=== PATIENT | male | born 1995 | race Caucasian/White ===

== ENCOUNTER 2019-05-20 22:29 | Emergency (ER) | payer OTHER ==
[~2019-05-20] VITALS: Ht 188 cm; Wt 99.8 kg
[2019-05-20 22:30] VITALS: BP_SYST 154
[2019-05-20] MEDS ORDERED: NACL 0.9% 1,000 ML IV ONE (23:05)
[2019-05-20] MEDS ORDERED: MORPHINE 2 MG/ML INJ. SYRINGE IM ONE (23:15)
[2019-05-20] MEDS ORDERED: ONDANSETRON HCL 4 MG/2 ML VIAL IVP ONE (23:15)
[2019-05-21 00:46] LABS: EOSINOPHILS # (AUTO) 0.3 K/uL (0.0-0.4); LYMPHOCYTES # (AUTO) 5.2 K/uL (1.0-5.5); MONOCYTES # (AUTO) 1.1 K/uL (0.0-1.0); MONOCYTES % (AUTO) 8.8 % (1.7-9.3); WHITE BLOOD COUNT (AUTO) 12.7 K/uL (4.8-10.8)
[2019-05-21 00:51] LABS: BASOPHILS % (AUTO) 0.3 % (0.0-2.0); EOSINOPHILS % (AUTO) 2.2 % (0.0-4.0); HEMATOCRIT 43.2 % (36-54); HEMOGLOBIN 15.4 g/dL (14.0-18.0); LYMPHOCYTES % (AUTO) 41.3 % (20.5-51.5); MEAN CORPUSCULAR HEMOGLOBIN 31 pg (27-31); MEAN CORPUSCULAR HGB CONC 36 % (32-36); MEAN CORPUSCULAR VOLUME 88 fL (79.0-98.0); NEUTROPHILS % (AUTO) 47.4 % (40.0-70.0); PLATELET COUNT (AUTO) 363 K/uL (130-430); RED BLOOD CELL COUNT(AUTO) 4.89 MIL/uL (4.2-6.2); RED CELL DISTRIBUTION WIDTH 12.3 % (9.0-15.0)
[2019-05-21 00:56] LABS: CALCIUM 9.4 mg/dL (8.4-11.0); CREATININE 0.87 mg/dL (0.55-1.30); POTASSIUM 3.2 mmol/L (3.5-5.1)
[2019-05-21 01:00] LABS: BILIRUBIN,URINE NEGATIVE (NEGATIVE); BLOOD, URINE NEGATIVE (NEGATIVE); CLARITY/URINE SL HAZY (CLEAR); COLOR,URINE YELLOW (YELLOW); GLUCOSE,URINE NEGATIVE (NEGATIVE); KETONES,URINE TRACE (NEGATIVE); LEUKOCYTE ESTERASE ,URINE NEGATIVE (NEGATIVE); NITRITE, URINE NEGATIVE (NEGATIVE); PH,URINE 5.5 (5.0-8.0); PROTEIN URINE TRACE (NEGATIVE); UROBILINOGEN,URINE 0.2 (0.2-1.0)
[2019-05-21 01:01] LABS: PROTHROMBIN TIME 10.1 SECS (9.5-12.5)
[2019-05-21 01:02] LABS: ALBUMIN 4.3 g/dL (3.4-4.8); TOTAL BILIRUBIN 0.6 mg/dL (0.0-1.0)
[2019-05-21 02:30] VITALS: BP_SYST 128
== END 2019-05-21 02:30 | disposition home or self-care (01) ==
LOC: SED 22:29
DX: R10.31 Right lower quadrant pain (principal); Z88.5 Allergy status to narcotic agent; Z88.6 Allergy status to analgesic agent
CPT/HCPCS: 36415; 74176; 80053; 81003; 83690; 85025; 85610; 85730; 96374; 96375; 99284; J2270; J2405; J7030

== ENCOUNTER 2020-03-20 03:36 | Emergency (ER) | payer OTHER ==
[~2020-03-20] VITALS: Ht 185.4 cm; Wt 81.6 kg
[2020-03-20 04:10] VITALS: BP_SYST 128
[2020-03-20] MEDS ORDERED: MORPHINE 4 MG/ML INJ. SYRINGE IM ONE (05:00)
[2020-03-20 05:26] VITALS: BP_SYST 128
== END 2020-03-20 05:26 | disposition home or self-care (01) ==
LOC: SED 03:36
DX: M54.5 Low back pain (principal); Z88.5 Allergy status to narcotic agent; Z88.6 Allergy status to analgesic agent
CPT/HCPCS: 96372; 99283; J2270

== ENCOUNTER 2020-09-19 20:58 | Emergency (ER) | payer OTHER ==
[~2020-09-19] VITALS: Ht 177.8 cm; Wt 81.6 kg
[2020-09-19 21:10] VITALS: BP_SYST 136
[2020-09-19] MEDS ORDERED: HYDROcodone/ACETAMIN 7.5-325 MG TAB PO ONE (21:45)
[2020-09-19] MEDS ORDERED: KETOROLAC TROMETHAMINE 60 MG/2 ML VIAL IM ONE (21:45)
[2020-09-19 22:32] LABS: BASOPHILS % (AUTO) 0.3 % (0.0-2.0); EOSINOPHILS % (AUTO) 0.4 % (0.0-4.0); HEMATOCRIT 40.3 % (36-54); HEMOGLOBIN 14.2 g/dL (14.0-18.0); LYMPHOCYTES # (AUTO) 3.2 K/uL (1.0-5.5); LYMPHOCYTES % (AUTO) 28.6 % (20.5-51.5); MEAN CORPUSCULAR HEMOGLOBIN 30 pg (27-31); MEAN CORPUSCULAR HGB CONC 35 % (32-36); MEAN CORPUSCULAR VOLUME 84 fL (79.0-98.0); MONOCYTES # (AUTO) 0.7 K/uL (0.0-1.0); MONOCYTES % (AUTO) 6.2 % (1.7-9.3); NEUTROPHILS # (AUTO) 7.3 K/uL (1.8-7.7); NEUTROPHILS % (AUTO) 64.5 % (40.0-70.0); PLATELET COUNT (AUTO) 297 K/uL (130-430); RED BLOOD CELL COUNT(AUTO) 4.79 MIL/uL (4.2-6.2); RED CELL DISTRIBUTION WIDTH 11.8 % (9.0-15.0); WHITE BLOOD COUNT (AUTO) 11.3 K/uL (4.8-10.8)
[2020-09-19 22:42] LABS: ANION GAP 12 (5-15); CALCIUM 9.2 mg/dL (8.4-11.0); CHLORIDE 105 mmol/L (98-107); CREATININE 0.81 mg/dL (0.55-1.30); GLUCOSE 91 mg/dL (70-99); POTASSIUM 3.5 mmol/L (3.5-5.1); SODIUM SERUM 140 mmol/L (136-145); UREA NITROGEN, BLOOD 8 mg/dL (8-21)
[2020-09-19 22:46] LABS: PROTHROMBIN TIME 10.7 SECS (9.5-12.5)
[2020-09-19 22:47] LABS: ALANINE AMINOTRANSFERASE 54 U/L (12-78); ALBUMIN 4.2 g/dL (3.4-4.8); ASPARTATE AMINOTRANSFERASE 27 U/L (10-37); TOTAL BILIRUBIN 0.8 mg/dL (0.0-1.0)
[2020-09-19 22:48] LABS: C-REACTIVE PROTEIN QUANT < 0.2 mg/dL (0-0.5); GFR AFRICAN AMERICAN 149 mL/min (>90)
[2020-09-19 23:09] VITALS: BP_SYST 136
[2020-09-19 23:23] LABS: ERYTHROCYTE SEDIMENTATION RATE 12 MM/HR (0-15)
== END 2020-09-19 23:10 | disposition home or self-care (01) ==
LOC: SED 20:58
DX: R51.9 Headache, unspecified (principal); Z88.6 Allergy status to analgesic agent
CPT/HCPCS: 36415; 70450-TC; 76376; 80053; 85025; 85610-TC; 85651-TC; 85730-TC; 86140; 96372; 99284

== ENCOUNTER 2020-09-22 21:36 | Emergency (ER) | payer OTHER ==
[~2020-09-22] VITALS: Ht 185.4 cm; Wt 99.8 kg
[2020-09-22 21:45] VITALS: BP_SYST 119
[2020-09-22] MEDS ORDERED: DIPHENHYDRAMINE INJ 50 MG/ML VIAL IVP ONE (21:45)
[2020-09-22] MEDS ORDERED: MAGNESIUM SULFATE IN WATER 100 ML IV ONE (21:45)
[2020-09-22] MEDS ORDERED: PROCHLORPERAZINE EDISYLATE 10 MG/2 ML VIAL IVP ONE (21:45)
[2020-09-22] MEDS ORDERED: NACL 0.9% 1,000 ML IV ONE (21:45)
[2020-09-23] MEDS ORDERED: DIPHENHYDRAMINE INJ 50 MG/ML VIAL ONE (00:09)
[2020-09-23] MEDS ORDERED: PROCHLORPERAZINE EDISYLATE 10 MG/2 ML VIAL ONE (00:10)
[2020-09-23] MEDS ORDERED: MAGNESIUM SULFATE 100 ML IV ONE (00:11)
[2020-09-23 00:41] VITALS: BP_SYST 118
== END 2020-09-23 00:41 | disposition home or self-care (01) ==
LOC: SED 21:36
DX: G43.909 Migraine, unspecified, not intractable, without status migrainosus (principal); Z88.6 Allergy status to analgesic agent
CPT/HCPCS: 96365; 96375; 99284; J0780; J1200; J3475; J7030

== ENCOUNTER 2020-10-22 22:42 | Emergency (ER) | payer OTHER ==
[~2020-10-22] VITALS: Ht 185.4 cm; Wt 99.8 kg
[2020-10-22 22:55] VITALS: BP_SYST 110
--- NOTE | 2020-10-22 22:55 | NUR ---
Placed in room 2. Placed on geoscience specialist. To gown for exam. Side rails up. Report given to Jeanine RN/Jacquelyn RN.
--- NOTE | 2020-10-22 22:56 | NUR ---
Came in ER ambulatory this 24 year old male, AAOX4, breathing spontaneously at room air, not in distress noted. With chief complaints of small cyst with moderate to sever pain in pilonidal area. Known with Fibrmyalagia, Depression and anxiety. history of status post incision and drainage of cyst at same area and 6months ago it came back and pus pop up by itselt. Initial vital signs taken and recorded,stable.
--- NOTE | 2020-10-22 23:32 | NUR ---
Seen and examined by Dr. Mark, made order for Toradol 60mg IM once.
[2020-10-22] MEDS ORDERED: KETOROLAC TROMETHAMINE 60 MG/2 ML VIAL IM ONE ×2 (23:45→23:49)
[2020-10-23] MEDS ORDERED: LIDOCAINE/EPI 1% 1:100000 20 ML VIAL INJ ONE (00:30)
--- NOTE | 2020-10-23 00:30 | NUR ---
Seen and examined by Dr. Tolentino, prepared for I and D at [facility]
[2020-10-23] MEDS ORDERED: IBUP-1971 PO (01:03)
[2020-10-23] MEDS ORDERED: CEPH-568 PO (01:03)
--- NOTE | 2020-10-23 01:05 | NUR ---
[facility], dressing with Bacitracin and 4x4 gauze applied, no active bleeding noted
[2020-10-23 01:15] VITALS: BP_SYST 119
--- NOTE | 2020-10-23 01:15 | NUR ---
Patient given written and verbal discharge instructions and verbalizes understanding. ER MD discussed with patient the results and treatment provided. Patient in stable condition. ID arm band removed. Rx of given. Patient educated on pain management and to follow up with PMD. Pain Scale 3/10. Opportunity for questions provided and answered. Medication side effect fact sheet provided.
== END 2020-10-23 01:15 | disposition home or self-care (01) ==
LOC: SED 22:42
DX: L05.91 Pilonidal cyst without abscess (principal); F17.200 Nicotine dependence, unspecified, uncomplicated; Z88.6 Allergy status to analgesic agent
CPT/HCPCS: 10080; 96372; 99283; J1885

== ENCOUNTER 2021-02-09 21:15 | Emergency (ER) | payer OTHER ==
[~2021-02-09] VITALS: Ht 185.4 cm; Wt 99.8 kg
[~2021-02-09 21:15] MED LIST: CEPH-568 PO; IBUP-1971 PO
[2021-02-09 21:27] VITALS: BP_SYST 130
[2021-02-09] MEDS ORDERED: MAG HYDROX/AL HYDROX/SIMETH 30 ML, DICYCLOMINE HCL 20 MG, LIDOCAINE VISCOUS 2% 15ML (PO... PO ONE ×3 (21:30)
[2021-02-09 21:53] LABS: BASOPHILS # (AUTO) 0.1 K/uL (0.0-0.2); BASOPHILS % (AUTO) 0.5 % (0.0-2.0); EOSINOPHILS # (AUTO) 0.2 K/uL (0.0-0.4); EOSINOPHILS % (AUTO) 2.2 % (0.0-4.0); HEMATOCRIT 40.3 % (36-54); HEMOGLOBIN 14.1 g/dL (14.0-18.0); LYMPHOCYTES # (AUTO) 4.1 K/uL (1.0-5.5); LYMPHOCYTES % (AUTO) 37.9 % (20.5-51.5); MEAN CORPUSCULAR HEMOGLOBIN 30 pg (27-31); MEAN CORPUSCULAR HGB CONC 35 % (32-36); MEAN CORPUSCULAR VOLUME 85 fL (79.0-98.0); NEUTROPHILS # (AUTO) 5.5 K/uL (1.8-7.7); NEUTROPHILS % (AUTO) 50.4 % (40.0-70.0); PLATELET COUNT (AUTO) 263 K/uL (130-430); RED BLOOD CELL COUNT(AUTO) 4.75 MIL/uL (4.2-6.2); RED CELL DISTRIBUTION WIDTH 12.5 % (9.0-15.0); WHITE BLOOD COUNT (AUTO) 10.9 K/uL (4.8-10.8)
[2021-02-09 22:21] LABS: CREATININE 0.89 mg/dL (0.55-1.30); POTASSIUM 4.1 mmol/L (3.5-5.1)
[2021-02-09 22:27] LABS: ALBUMIN 3.8 g/dL (3.4-4.8); TOTAL BILIRUBIN 0.2 mg/dL (0.0-1.0)
[2021-02-09 23:45] VITALS: BP_SYST 128
== END 2021-02-09 23:45 | disposition home or self-care (01) ==
LOC: SED 21:15
DX: K20.90 Esophagitis, unspecified without bleeding (principal); R07.89 Other chest pain; Z88.5 Allergy status to narcotic agent; Z88.8 Allergy status to other drugs, medicaments and biological substances; Z79.899 Other long term (current) drug therapy
CPT/HCPCS: 36415; 71045; 80053; 84484; 85025; 93005; 99285; J2001

== ENCOUNTER 2022-08-01 15:30 | Emergency (ER) | payer OTHER ==
[~2022-08-01] VITALS: Ht 185.4 cm; Wt 117.9 kg
[2022-08-01 15:30] VITALS: BP_SYST 143
--- NOTE | 2022-08-01 15:35 | NUR ---
Patient triaged and placed in waiting room. VSS and patient appears in no acute distress at this time. Accompanied by FRIEND, awaiting available bed, and MD notified of need for MSE.
== END 2022-08-01 18:29 | disposition left against medical advice (07) ==
LOC: SED 15:30
DX: M79.671 Pain in right foot (principal); Z53.21 Procedure and treatment not carried out due to patient leaving prior to being seen by health care provider